=== PATIENT | male | born 1960 ===

== ENCOUNTER → 2022-01-13 07:48 | Outpatient (BNVA) | payer OTHER, MEDICARE, SELFPAY | PROVIDERS: PCP Internal Medicine; Visit Provider Nurse Practitioner Family | DX: Z13.89 Encounter for screening for other disorder (principal) ==

== ENCOUNTER → 2023-01-12 07:41 | Outpatient (BNVA) | payer OTHER, MEDICARE, SELFPAY | PROVIDERS: PCP Internal Medicine; Visit Provider Nurse Practitioner Family | DX: Z13.89 Encounter for screening for other disorder (principal) ==

== ENCOUNTER 2024-01-16 07:55 | Outpatient (AMB) | payer OTHER, MEDICARE, SELFPAY ==
--- NOTE | 2024-01-16 07:56 | MHC.OFFVIS ---
Vital Signs 01/16/24 07:58 Height 5 ft 4 in Weight 196 lb BMI 33.6 BP 132/82 Blood Pressure Location Rt brachial Position Sitting Pulse 86 Pulse Source Pulse Oximeter Pulse Oximetry (%) 95 Oxygen Delivery Method Room Air Intake Visit Reasons: 1yr follow up THERESA/ Confirmed w/ Inés Intake Note: Patient presents for 1 year follow up THERESA. Patient feels tired and sleepy all the time. Allergies codeine Allergy (Unknown, Verified 01/16/24 07:59) Itching Medication List - Last Reconciled 01/16/24 by JUAN Bar amlodipine 10 mg PO DAILY aspirin 81 mg PO DAILY atorvastatin 80 mg PO DAILY cholecalciferol (vitamin D3) 25 mcg PO DAILY coenzyme [id number] 100-100 mg-unit caps PO duloxetine 30 mg PO DAILY hydrochlorothiazide 25 mg PO DAILY isosorbide mononitrate ER 60 mg PO DAILY losartan 25 mg PO DAILY metformin 500 mg PO BID metformin 1,000 mg PO BID metoprolol succinate ER 25 mg PO DAILY oxybutynin chloride ER 10 mg PO DAILY [tumeric PO] zolpidem 5 mg PO BEDTIME PRN HPI Comments Details: 63-yr-old male presents for follow-up visit for THERESA. Pt reports he uses his CPAP most nights. He usually sleeps about 6 hrs w/ the CPAP, then removes the mask and sleeps another 2 hrs. Sleeps well w/ use, but wakes up tired. He often feels sleepy and tired. He takes some walks, but is not very active. Takes 1 black coffee in the am. Denies alcohol or marijuana use. He does move a lot at night, kicks his legs. His puts a pillow between them, as kicks and fights. He denies leg cramps. Sometimes rubs his legs together at night. He voids 3-4 x's per night. Has zolpidem- not using it nightly. The fighting in his sleep occurs on nights when he does not take the zolpidem. States he is still forgetful. He needs to read something a few times before he understands and recalls this. Compliance Report Usage 10/18/2023 - 01/15/2024 Usage days 88/90 days (98%) Usage >= 4 hours 86 days (96%) Average usage (days used) 6 hours 30 minutes AirSense 10 AutoSet Serial number [id number] Mode AutoSet Min Pressure 6 cmH2O Max Pressure 16 cmH2O, w/ Max pressure 13 cmH2O EPR Fulltime EPR level 3 Residual AHI: 1.6 PFSH Medical History (Updated 01/16/24 @ 08:45 by JUAN Bar) HTN (hypertension) HLD (hyperlipidemia) Depression Surgical History Hx of thyroidectomy Social History (Updated 01/12/23 @ 08:00 by Elham Ashton CMA) Alcohol intake: never Patient Tobacco Use Status: Never used Tobacco Review of Systems Const All systems reviewed & are unremarkable except as noted in HPI and below Physical Exam Vital Signs: Last Vital Signs Pulse 86 01/16/24 07:58 BP 132/82 01/16/24 07:58 Pulse Ox 95 01/16/24 07:58 Oxygen Delivery Method Room Air 01/16/24 07:58 BMI result Body Mass Index 33.6 Const General: no acute distress Orientation/consciousness: patient oriented x3 Resp Effort & Inspection: able to speak in complete sentences Neuro General: patient oriented x3 Psych Mental Status: mental status grossly normal Speech and movement: Clear speech present Attitude: cooperative Telehealth Telehealth Location of provider rendering services: practice address Location of patient: address on file Patient Identification confirmed using: Name, : Yes Telehealth method: voice only Patient verbally consented to treatment: Yes Patient verbally consented to billing insurance company: Yes Patient informed of any privacy concerns related to visit: Yes Results Reviewed Results Reviewed: PAP compliance report- see HPI Assessment & Plan Assessment & Plan (1) Obstructive sleep apnea: Code(s): G47.33 - Obstructive sleep apnea (adult) (pediatric) Category: Medical (2) Cognitive dysfunction: Comment: ? mild vascular cognitive impairment. Code(s): F09 - Unspecified mental disorder due to known physiological condition Category: Medical (3) Parasomnia: Code(s): G47.50 - Parasomnia, unspecified Category: Medical Plan Pt advised to undergo in-lab sleep study on CPAP to assess for REM sleep behaviors vs parasomnias. For THERESA: Continue APAP 6-16 cmH2O nightly > 4 hours, as pt is having good clinical effect. Clean machine and supplies daily. Change PAP supplies routinely. Pt to call us/respiratory home care company with any concerns. ? For cognition: Continue regular exercise, socialization, and cognitively stimulating activities. Continue ASA, statin and anti-HTN regimen for CV risk reduction f/u in 6 months or sooner. Orders: Orders RT PSG in-lab sleep study Today F09 - Unspecified mental disorder due to known physiological condition, G47.33 - Obstructive sleep apnea (adult) (pediatric), G47.50 - Parasomnia, unspecified Coding Level of Care Code Est Pt Level 4 (97795) Diagnoses Obstructive sleep apnea G47.33 Cognitive dysfunction F09 Parasomnia G47.50
[2024-01-16 07:58] VITALS: BP 132/82; PULSE 86; O2SAT 95; BMI 33.6
== END 2024-01-16 08:52 | disposition home or self-care (01) ==
PROVIDERS: Visit Provider Nurse Practitioner Family
DX: G47.33 Obstructive sleep apnea (adult) (pediatric) (principal); R41.89 Other symptoms and signs involving cognitive functions and awareness; G47.50 Parasomnia, unspecified
CPT/HCPCS: 99214

== ENCOUNTER → 2024-01-16 07:55 | Outpatient (BNVA) | payer OTHER, MEDICARE, SELFPAY | PROVIDERS: Visit Provider Nurse Practitioner Family ==

== ENCOUNTER → 2024-02-19 19:30 | Outpatient (BNV) | payer OTHER, MEDICARE, SELFPAY | PROVIDERS: Visit Provider Psychiatry & Neurology Neurology | DX: G47.33 Obstructive sleep apnea (adult) (pediatric) (principal) | CPT/HCPCS: 95810 ==

== ENCOUNTER → 2024-02-19 20:30 | Outpatient (REF) | payer OTHER, MEDICARE, SELFPAY | LOC: HO.SL 20:30 | PROVIDERS: Visit Provider Nurse Practitioner Family | DX: G47.33 Obstructive sleep apnea (adult) (pediatric) (principal); G47.50 Parasomnia, unspecified | CPT/HCPCS: 95810 ==

== ENCOUNTER → 2024-04-20 20:30 | Outpatient (REF) | payer OTHER, MEDICARE, SELFPAY | LOC: HO.SL 20:30 | PROVIDERS: Visit Provider Nurse Practitioner Family | DX: G47.33 Obstructive sleep apnea (adult) (pediatric) (principal); F09 Unspecified mental disorder due to known physiological condition; G47.50 Parasomnia, unspecified | CPT/HCPCS: 95811 ==

== ENCOUNTER → 2024-04-20 22:58 | Outpatient (BNV) | payer OTHER, MEDICARE, SELFPAY | PROVIDERS: Visit Provider Psychiatry & Neurology Neurology | DX: G47.33 Obstructive sleep apnea (adult) (pediatric) (principal) | CPT/HCPCS: 95811 ==

== ENCOUNTER 2024-07-25 15:21 | Outpatient (AMB) | payer OTHER, MEDICARE, SELFPAY ==
[2024-07-25 15:26] VITALS: BP 146/86; PULSE 80; O2SAT 95; BMI 34.2
--- NOTE | 2024-07-25 15:26 | A.OFFVIS_ITS ---
Vital Signs 07/25/24 15:26 Height 5 ft 4 in Weight 199 lb BMI 34.2 BP 146/86 H Blood Pressure Location Rt brachial Position Sitting Pulse 80 Pulse Source Pulse Oximeter Pulse Oximetry (%) 95 Oxygen Delivery Method Room Air Intake Visit Reasons: 6 month f/u Art Handler Required: Yes Art Handler Name: Kristine Montoya Information Interpreted: non-clinical & clinical Accompanied by: Self / Same As Patient Allergies codeine Allergy (Unknown, Verified 07/25/24 15:29) Itching HPI Comments Details: Carmelo is a 64 year old male, follows up today for his THERESA and parasomnia behaviors. 04/21/24, in-lab PAP titration study- study showed good control of pt's THERESA on CPAP 4-8, w/ best response at 8cmH2O. There was frequent PLMS 61/hr and PLMS arousal index 11/hr. He is sleeping 7 hours a night, gets up for the bathroom then goes back to sleep. Pt is using his CPAP regularly. He says he understands the importance of compliance due to his h/o T2DM and HTN. The PAP pressures are okay for him, he cleans the mask as needed. BP 146/86 today. Mood is anxious as he is dealing with problems at home. Sees a psychologist and pscyhiatrist. He continues to have frequent nocturnal restless leg movements. His puts pillows between his legs.. Since the last visit we started pt on low dose Clonazepam for REM sleep behaviors- he had jumped out of bed and almost hit his head on the bedside table, which have helped reduce the episodes of jumping out of bed and flailing/fighting while sleep. Walking continues to be very painful and he still walks for 15 min daily. He bikes at the gym for 30 min daily and is working with a pulmonology technician to change eating habits, and has information on the DASH Diet and the Mediterranean Diet. 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 [facility] Compliance Report Usage 06/26/2024 - 07/25/2024 Usage days 29/30 days (97%) Usage >= 4 hours 29 days (97%) Average usage (days used) 6 hours 21 minutes AirSense 10 AutoSet Serial number [id number] Mode AutoSet Min Pressure 6 cmH2O Max Pressure 16 cmH2O, w/ Max pressure 13.1 cmH2O EPR Fulltime EPR level 3 Residual AHI: 1.6 PFSH Medical History (Updated 07/25/24 @ 17:16 by Hedy Roque PA-C) HTN (hypertension) HLD (hyperlipidemia) Depression Surgical History Hx of thyroidectomy Social History Alcohol intake: never Patient Tobacco Use Status: Never used Tobacco Review of Systems Const Reports as per HPI Musc Reports numbness and Reports tingling Neuro Reports numbness, Reports restless legs and Reports tingling Psych Reports anxiety and Reports difficulty concentrating Physical Exam Vital Signs: Last Vital Signs Pulse 80 07/25/24 15:26 BP 146/86 H 07/25/24 15:26 Pulse Ox 95 07/25/24 15:26 Oxygen Delivery Method Room Air 07/25/24 15:26 BMI result Body Mass Index 34.2 Const General: cooperative, no acute distress and anxious Nutritional Appearance: overweight Orientation/consciousness: patient oriented x3 HEENT Face and sinus: Yes face symmetric Eyes Pupils: Equal, round and reactive pupils present, Pupils normal by confrontation and Pupil accommodation reflex normal Neck Neck: Yes full ROM and Yes supple Resp Effort & Inspection: normal respiratory effort and able to speak in complete sentences Neuro General: patient oriented x3 Cranial nerves: Yes CN's II-XII intact bilaterally, Yes Equal, round and reactive pupils present and Yes Midline tongue present Gait exam (Neuro): Normal gait present Deep tendon reflexes (DTR's): Right triceps reflex intensity grade: 2+, Left triceps reflex intensity grade: 2+, Rt Biceps (C5, C6): 2+, Left biceps reflex intensity grade: 2+, Right brachioradialis reflex intensity grade: 2+, Left brachioradialis reflex intensity grade: 2+, Right patellar reflex intensity grade: 2+, Left patellar reflex intensity grade: 2+, Right ankle reflex intensity grade: 2+ and Left ankle reflex intensity grade: 2+ Coordination: [id number] test normal Romberg Test: Negative Assessment & Plan Assessment & Plan (1) Parasomnia: Code(s): G47.50 - Parasomnia, unspecified Category: Medical Qualifiers: Parasomnia type: REM sleep behavior disorder Qualified Code(s): G47.52 - REM sleep behavior disorder Plan: * Will follow up in two months after labs are completed. (2) Cognitive dysfunction: Comment: ? mild vascular cognitive impairment. Code(s): F09 - Unspecified mental disorder due to known physiological condition Category: Medical Plan: Complete TSH/ B12/ with Folate and ESR/CRP/ CBC/CMP/ Viral etiology or deficiency of vitamins. (3) Obstructive sleep apnea: Code(s): G47.33 - Obstructive sleep apnea (adult) (pediatric) Category: Medical (4) White matter disease: Comment: On MRI likely due to his vascular risk factors Code(s): R90.82 - White matter disease, unspecified Category: Medical Plan ? For THERESA: In-lab PAP titration study showed good response to CPAP 8 cmH2O, however pt is tolerating current settings well, thus will continue APAP 6-16 cmH2O nightly > 4 hours for now. Clean machine and supplies daily. Change PAP supplies routinely. For REM sleep behaviors: Continue Clonazepam 0.5-1mg qhs. For PLMS and restlessness: Check labs for common etiologies. Continue Gabapentin 100-200mg qhs. May try OTC Voltran, Restless Leg creams, ointments or tiger balm. ? For cognition: Continue regular exercise, socialization, and cognitively stimulating activities. Continue ASA, statin and anti-HTN regimen for CV risk reduction ? f/u in 6 months or sooner. Orders: Orders Homocysteine 07/26/24 G47.50 - Parasomnia, unspecified, I10 - Essential (primary) hypertension, E78.5 - Hyperlipidemia, unspecified Vitamin B12 and Folate 07/26/24 G47.50 - Parasomnia, unspecified, I10 - Essential (primary) hypertension, E78.5 - Hyperlipidemia, unspecified RPR Monitor reflex titer 07/26/24 G47.50 - Parasomnia, unspecified, I10 - Essential (primary) hypertension, E78.5 - Hyperlipidemia, unspecified HIV Ab/Ag 07/26/24 G47.50 - Parasomnia, unspecified, I10 - Essential (primary) hypertension, E78.5 - Hyperlipidemia, unspecified CRP High Sensitivity 07/26/24 G47.50 - Parasomnia, unspecified, I10 - Essential (primary) hypertension, E78.5 - Hyperlipidemia, unspecified Complete Blood Count no Diff 07/26/24 G47.50 - Parasomnia, unspecified, I10 - Essential (primary) hypertension, E78.5 - Hyperlipidemia, unspecified Comprehensive Met. Panel 07/26/24 G47.50 - Parasomnia, unspecified, I10 - Essential (primary) hypertension, E78.5 - Hyperlipidemia, unspecified Methylmalonic Acid 07/26/24 G47.50 - Parasomnia, unspecified, I10 - Essential (primary) hypertension, E78.5 - Hyperlipidemia, unspecified TSH reflex Free T4 07/26/24 G47.50 - Parasomnia, unspecified, I10 - Essential (primary) hypertension, E78.5 - Hyperlipidemia, unspecified Lyme IgG/IgM w/reflex to WB 07/26/24 G47.50 - Parasomnia, unspecified, I10 - Essential (primary) hypertension, E78.5 - Hyperlipidemia, unspecified Ferritin 07/26/24 G47.50 - Parasomnia, unspecified, I10 - Essential (primary) hypertension, E78.5 - Hyperlipidemia, unspecified Erythrocyte Sedimentation Rate 07/26/24 G47.50 - Parasomnia, unspecified, I10 - Essential (primary) hypertension, E78.5 - Hyperlipidemia, unspecified IRON PROFILE 07/26/24 G47.50 - Parasomnia, unspecified, I10 - Essential (primary) hypertension, E78.5 - Hyperlipidemia, unspecified Medications: New gabapentin Take one capsule at bedtime, may take one extra capsule for pain. 100 mg PO BEDTIME 60 caps 2RF G47.50 - Parasomnia, unspecified Coding Level of Care Code Est Pt Level 4 (33953) Complex EM visit Add On G2211 Diagnoses REM sleep behavior disorder G47.52 Parasomnia type: REM sleep behavior disorder Cognitive dysfunction F09 Obstructive sleep apnea G47.33 White matter disease R90.82
== END 2024-07-26 08:02 | disposition home or self-care (01) ==
LOC: HO.HSMS 15:22
PROVIDERS: PCP Internal Medicine; Visit Provider Nurse Practitioner Family
DX: G47.52 REM sleep behavior disorder (principal); R41.89 Other symptoms and signs involving cognitive functions and awareness; G47.33 Obstructive sleep apnea (adult) (pediatric); R90.82 White matter disease, unspecified
CPT/HCPCS: 99214

== ENCOUNTER 2024-07-26 10:35 | Outpatient (REF) | payer OTHER, MEDICARE, SELFPAY ==
[2024-07-26 11:36] LABS: Hematocrit 40.6 % (42.0-52.0); Hemoglobin 14.1 g/dl (14.0-18.0); Mean Corpuscular HGB Conc 34.7 g/dl (31.0-36.0); Mean Corpuscular Hemoglobin 30.2 pg (27.0-33.0); Mean Corpuscular Volume 86.9 fL (80.0-98.0); Mean Platelet Volume 11.5 fL (9.4-12.4); Platelet Count 203 X10*3/uL (160-400); Red Blood Count 4.67 X10*6/uL (4.60-5.80); White Blood Count 4.8 X10*3/uL (4.8-10.8)
[2024-07-26 11:52] LABS: Alanine Aminotransferase 31 U/L (0-40); Albumin Level 4.4 g/dL (3.5-5.0); Alkaline Phosphatase 59 U/L (39-117); Anion Gap 13 (12-20); Aspartate Amino Transferase 19 U/L (5-37); Blood Urea Nitrogen 17 mg/dL (9-16); Calcium 9.2 mg/dL (8.4-10.2); Carbon Dioxide 27 mmol/L (22-29); Chloride 106 mmol/L (96-108); Estimated Glomerular Filt Rate 59; Glucose Random 111 mg/dL (60-115); Iron 105 mcg/dL (45-160); Percent Iron Saturation 40 % (15-50); Potassium 3.8 mmol/L (3.3-5.1); Sodium 142 mmol/L (135-145); Total Iron Binding Capacity 265 mcg/dL (228-428); Total Protein 7.2 g/dL (6.5-8.0); Unsaturated Iron Binding 160 ug/dL
[2024-07-26 12:06] LABS: Erythrocyte Sedimentation Rate 11 MM/HR (0-15)
[2024-07-26 12:11] LABS: Ferritin 61 ng/mL (20-250); TSH reflex Free T4 1.17 uIU/mL (0.32-4.0)
[2024-07-26 12:15] LABS: HIV AB/AG Nonreactive (Nonreactive); HIV Num 1 0.08 S/CO (0.00-0.99)
[2024-07-26 12:23] LABS: Folate 8.2 ng/mL (> or = 4.0); Vitamin B12 684 pg/mL (200-900)
[2024-07-27 08:02] LABS: CRP High Sensitivity 0.6 mg/L
[2024-07-27 08:33] LABS: Lyme Abs Screen <0.90 index
[2024-07-27 11:03] LABS: RPR Rapid Plasma Reagin NON-REACTIVE (NON-REACTIVE)
[2024-07-27 18:13] LABS: Homocysteine 15.2 umol/L (<11.4)
[2024-07-29 10:44] LABS: Methylmalonic Acid 179 nmol/L (69-390)
== END 2024-07-26 10:36 | disposition home or self-care (01) ==
LOC: HO.LAB 10:35
PROVIDERS: PCP Internal Medicine; Visit Provider Physician Assistant Medical
DX: G47.50 Parasomnia, unspecified (principal); I10 Essential (primary) hypertension; E78.5 Hyperlipidemia, unspecified
CPT/HCPCS: 36415; 80053; 82607; 82728; 82746; 83090; 83540; 83921; 84443; 85027; 85652; 86141; 86592; 86617; 86618; 87389

== ENCOUNTER 2024-09-24 14:48 | Outpatient (AMB) | payer OTHER, MEDICARE, SELFPAY ==
[2024-09-24 14:49] VITALS: BP 144/82; PULSE 85; O2SAT 96; BMI 33.9
--- NOTE | 2024-09-24 14:49 | A.OFFVIS_ITS ---
Vital Signs 09/24/24 14:49 Height 5 ft 4 in Weight 197 lb 8 oz BMI 33.9 BP 144/82 H Blood Pressure Location Lt brachial Position Sitting Pulse 85 Pulse Source Pulse Oximeter Pulse Oximetry (%) 96 Oxygen Delivery Method Room Air Intake Visit Reasons: Follow up Allergies codeine Allergy (Unknown, Verified 09/24/24 14:52) Itching Medication List - Last Reconciled 09/24/24 by Hedy Roque PA-C aspirin 81 mg PO DAILY atorvastatin 80 mg PO DAILY carvedilol 6.25 mg PO BID cholecalciferol (vitamin D3) 25 mcg PO DAILY clonazepam 0.25 - 0.5 mg (0.5 - 1 x 0.5 mg) PO BEDTIME 30 days coenzyme Q10 (Co Q-10) 300 mg PO DAILY fluoxetine 40 mg PO DAILY gabapentin 200 mg (2 x 100 mg) PO BEDTIME isosorbide mononitrate ER 60 mg PO DAILY losartan 25 mg PO DAILY magnesium 250 mg PO DAILY mecobalamin (vitamin B12) 1,000 mcg PO DAILY metformin 1,000 mg PO BID nitroglycerin mg sublingual thiamine HCl (vitamin B1) 100 mg PO DAILY HPI Comments Details: Carmelo is a 64 year old male, follows up today for his THERESA and parasomnia behaviors. helps with interpretation. He is using his CPAP regularly and sleeping about 6 hours a night. He understands the importance of compliance due to his h/o T2DM and HTN. BP 146/86 today. Mood is anxious, he has RLS. Sees a psychologist and pscyhiatrist both on a continuous basis. He continues to have frequent nocturnal restless leg movements. His puts pillows between his legs. Since the last visit we started pt on low dose Clonazepam for REM sleep behaviors. This has helped to reduce the episodes of jumping out of bed, flailing and fighting while asleep. He has been walking for 45 min on the treadmill, continues to have pain in feet, discussed increasing his Gabapentin to 200mg PO at bedtime. 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 Reviewed labs/ MRI and THERESA Compliance with . [facility] Medical History HTN (hypertension) HLD (hyperlipidemia) Depression Surgical History Hx of thyroidectomy Social History Alcohol intake: never Patient Tobacco Use Status: Never used Tobacco Physical Exam Vital Signs: Last Vital Signs Pulse 85 09/24/24 14:49 BP 144/82 H 09/24/24 14:49 Pulse Ox 96 09/24/24 14:49 Oxygen Delivery Method Room Air 09/24/24 14:49 BMI result Body Mass Index 33.9 Const General: cooperative and no acute distress Nutritional Appearance: obese (BMI ) Orientation/consciousness: patient oriented x3 HEENT Face and sinus: Yes face symmetric Eyes Pupils: Equal, round and reactive pupils present Neuro General: patient oriented x3 and moves all extremities Cranial nerves: Yes CN's II-XII intact bilaterally, Yes Facial sensation intact/muscles of mastication intact, Yes Equal, round and reactive pupils present, Yes Normal accommodation reflex present, Yes Bilaterally intact EOM present, Yes Nystagmus not present, Yes Normal facial strength present, Yes Midline tongue present, Yes Ability to bilaterally rotate head present and Yes Ability to bilaterally elevate shoulders present Gait exam (Neuro): Normal gait present Motor exam (neuro): 5/5 motor strength present throughout and Normal motor muscle tone present throughout Deep tendon reflexes (DTR's): Right triceps reflex intensity grade: 2+, Left triceps reflex intensity grade: 2+, Rt Biceps (C5, C6): 2+, Left biceps reflex intensity grade: 2+, Right brachioradialis reflex intensity grade: 2+, Left brachioradialis reflex intensity grade: 2+, Right patellar reflex intensity grade: 2+ and Left patellar reflex intensity grade: 2+ Psych Appearance: well kempt Speech and movement: Restless speech present Affect: Anxious affect present Thought process: Other thought process findings present (doesn't speak at all when asked questions, smiles d/t Language barrier?) Results Reviewed Results Reviewed: Neurocognitive Evaluation [facility] 2019 Labs: Reviewed THERESA Compliance 06/2024- 09/2024 >4 hours 74 days Total 5 hours and 3 min / Pressures [id number] / [place] 1.6- 15.7/ AHI 1.4 Assessment & Plan Assessment & Plan (1) Parasomnia: Code(s): G47.50 - Parasomnia, unspecified Category: Medical Qualifiers: Parasomnia type: REM sleep behavior disorder Qualified Code(s): G47.52 - REM sleep behavior disorder Plan: * Will follow up in two months after labs are completed. (2) Cognitive dysfunction: Comment: ? mild vascular cognitive impairment. Code(s): F09 - Unspecified mental disorder due to known physiological condition Category: Medical Plan: Complete TSH/ B12/ with Folate and ESR/CRP/ CBC/CMP/ Viral etiology or deficiency of vitamins. (3) Obstructive sleep apnea: Code(s): G47.33 - Obstructive sleep apnea (adult) (pediatric) Category: Medical (4) White matter disease: Comment: On MRI likely due to his vascular risk factors Code(s): R90.82 - White matter disease, unspecified Category: Medical (5) Bilateral foot pain: Code(s): M79.671 - Pain in right foot; M79.672 - Pain in left foot Category: Medical Plan ? For THERESA: In-lab PAP titration study showed good response to CPAP, thus will continue APAP 6-16 cmH2O. Clean machine and supplies daily as needed. For REM sleep behaviors: Continue Clonazepam 0.5-1mg qhs. For PLMS and restlessness: Increased Gabapentin to 200mg qhs. May try OTC Voltran, Restless Leg creams, ointments or tiger balm. PT - [facility] Cognitive Decline: Continue regular exercise, socialization, and cognitively stimulating activities. Continue ASA, statin and anti-HTN regimen for CV risk reduction, #1 modifiable RF for CV events is BP control, monitor BP. F/U in 6 months. Orders: Orders PT Evaluation and Treatment Today M79.671 - Pain in right foot, M79.672 - Pain in left foot Medications: New thiamine HCl (vitamin B1) 100 mg PO DAILY 30 tabs 3RF RLS F09 - Unspecified mental disorder due to known physiological condition Changed From gabapentin Take one capsule at bedtime, may take one extra capsule for pain. 100 mg PO BEDTIME 60 caps 2RF G47.50 - Parasomnia, unspecified To gabapentin 200 mg (2 x 100 mg) PO BEDTIME 60 caps 2RF sleep disorder G47.50 - Parasomnia, unspecified Coding Level of Care Code Est Pt Level 4 (19390) Diagnoses REM sleep behavior disorder G47.52 Parasomnia type: REM sleep behavior disorder Cognitive dysfunction F09 Obstructive sleep apnea G47.33 White matter disease R90.82 Bilateral foot pain M79.671; M79.672 Time Spent (min) 30 Comment Improving
== END 2024-09-24 16:01 | disposition home or self-care (01) ==
PROVIDERS: Absent Provider Physician Assistant Medical; PCP Internal Medicine; Visit Provider Physician Assistant Medical
DX: G47.52 REM sleep behavior disorder (principal); R41.89 Other symptoms and signs involving cognitive functions and awareness; G47.33 Obstructive sleep apnea (adult) (pediatric); R90.82 White matter disease, unspecified; M79.671 Pain in right foot; M79.672 Pain in left foot
CPT/HCPCS: 99214

== ENCOUNTER → 2024-09-24 14:48 | Outpatient (BNVA) | payer OTHER, MEDICARE, SELFPAY | PROVIDERS: Absent Provider Physician Assistant Medical; PCP Internal Medicine; Visit Provider Physician Assistant Medical ==

== ENCOUNTER 2025-03-27 15:24 | Outpatient (AMB) | payer OTHER, MEDICARE, SELFPAY ==
[2025-03-27 15:28] VITALS: BP 118/80; PULSE 88; O2SAT 96; BMI 33.8
--- NOTE | 2025-03-27 15:28 | A.OFFVIS_ITS ---
Vital Signs 03/27/25 15:28 Height 5 ft 4 in Weight 197 lb BMI 33.8 BP 118/80 Blood Pressure Location Lt brachial Position Sitting Pulse 88 Pulse Source Pulse Oximeter Pulse Oximetry (%) 96 Oxygen Delivery Method Room Air Intake Visit Reasons: Follow Up Intake Note: Patient presents follow up Sleep medication. 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 He uses his CPAP regularly and sleeps about 6 hours a night, however this week he was in [place] and didn't take it with him. BP is 118/80. T2DM is also now better managed on Metformin 1000mg PO BID, he says. His mood is anxious, and he has RLS. He sees a psychologist and pscyhiatrist both on a continuous basis, therapist usually every 2 weeks as he has depression, and takes fluoxetine. He continues to have frequent nocturnal restless leg movements. His puts pillows between his legs, she worries he may fall from the bed and puts padded pillows on the floors, she has removed all tables away from his side of the bed. He also takes gabapentin 300mg po daily at bedtime along with a low dose of Clonazepam for REM sleep behaviors. This has helped to reduce the episodes of jumping out of bed, flailing and fighting in his sleep. He is going to the gym now 5 days of week and trying to live a more healthier lifestyle, he has increased his water intake also. He walks for 45 min on the treadmill and says he has pain in his feet bilaterally with a burning sensation and then he stops walking. 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 [facility] Medical History HTN (hypertension) HLD (hyperlipidemia) Depression Surgical History Hx of thyroidectomy Social History Alcohol intake: never Patient Tobacco Use Status: Never used Tobacco Physical Exam Vital Signs: Last Vital Signs Pulse 88 03/27/25 15:28 BP 118/80 03/27/25 15:28 Pulse Ox 96 03/27/25 15:28 Oxygen Delivery Method Room Air 03/27/25 15:28 BMI result Body Mass Index 33.8 Const General: cooperative and no acute distress Nutritional Appearance: obese (BMI ) Orientation/consciousness: patient oriented x3 HEENT Face and sinus: Yes face symmetric Eyes Pupils: Equal, round and reactive pupils present Neuro Other: anxious, nervousness General: patient oriented x3 and moves all extremities Cranial nerves: Yes CN's II-XII intact bilaterally, Yes Facial sensation intact/muscles of mastication intact, Yes Equal, round and reactive pupils present, Yes Normal accommodation reflex present, Yes Bilaterally intact EOM present, Yes Nystagmus not present, Yes Normal facial strength present, Yes Midline tongue present, Yes Ability to bilaterally rotate head present and Yes Ability to bilaterally elevate shoulders present Gait exam (Neuro): Normal gait present Motor exam (neuro): 5/5 motor strength present throughout and Normal motor muscle tone present throughout Deep tendon reflexes (DTR's): Right triceps reflex intensity grade: 2+, Left triceps reflex intensity grade: 2+, Rt Biceps (C5, C6): 2+, Left biceps reflex intensity grade: 2+, Right brachioradialis reflex intensity grade: 2+, Left brachioradialis reflex intensity grade: 2+, Right patellar reflex intensity grade: 2+ and Left patellar reflex intensity grade: 2+ Psych Appearance: well kempt Speech and movement: Restless speech present and Other speech and movement exam findings present (Psych) (moves / shakes his feet constantly) Affect: Anxious affect present Thought process: Other thought process findings present (doesn't speak at all when asked questions, smiles d/t Language barrier?) Results Reviewed Results Reviewed: THERESA compliance Report December 2024 to March 2025 Total use is (80/90days, >-4hrs- 89%, Average usage- 5hrs 56min, Median pressure 8.9, Med Leaks- 0.9, AHI-1.4 Assessment & Plan Assessment & Plan (1) Parasomnia: Comment: Continue on Gabapentin increased today will evaluate at next visit Code(s): G47.50 - Parasomnia, unspecified Category: Medical Qualifiers: Parasomnia type: REM sleep behavior disorder Qualified Code(s): G47.52 - REM sleep behavior disorder Plan: * Will follow up in two months after labs are completed. (2) Cognitive dysfunction: Comment: ? mild vascular cognitive impairment. Code(s): F09 - Unspecified mental disorder due to known physiological condition Category: Medical Plan: Complete TSH/ B12/ with Folate and ESR/CRP/ CBC/CMP/ Viral etiology or deficiency of vitamins. (3) Obstructive sleep apnea: Code(s): G47.33 - Obstructive sleep apnea (adult) (pediatric) Category: Medical (4) White matter disease: Comment: On MRI likely due to his vascular risk factors Code(s): R90.82 - White matter disease, unspecified Category: Medical (5) Bilateral foot pain: Comment: RLS/ PLMD Code(s): M79.671 - Pain in right foot; M79.672 - Pain in left foot Category: Medical Plan ? For THERESA: In-lab PAP titration study showed good response to CPAP, thus will continue APAP 6-16 cmH2O. Clean machine and supplies daily as needed, change filters, fill reservoir with water as needed. For REM sleep behaviors: Continue Clonazepam 0.5-1mg qhs. For PLMS and restlessness: Increased Gabapentin from 200mg to 300mg po at bedtime. May try magnalife, OTC Voltran, Restless Leg creams, ointments or tiger balm. Recommend PT with [facility] however patient declined today. Cognitive Decline: Continue regular exercise, socialization, and cognitively stimulating activities. Continue ASA, statin and anti-HTN regimen for CV risk reduction, #1 modifiable RF for CV events is BP control, monitor BP. F/U in 6 months. Medications: Changed From gabapentin 200 mg (2 x 100 mg) PO BEDTIME 60 caps 2RF sleep disorder G47.50 - Parasomnia, unspecified To gabapentin take 3 - 100mg capsules daily at bedtime. 300 mg (3 x 100 mg) PO BEDTIME 270 caps 2RF REM sleep disorder 3 months MDD 300mg G47.50 - Parasomnia, unspecified Patient Instructions: Sleep Hygiene provided: set a scheduled bedtime and wake time to help regulate the circadian rhythm and balance the release of pituitary hormones. Sleep in a dark room, temperatures below 68 degrees, and no devices n bed. Limit caffeinated products 6 hours prior to bed, and limit fluids 2-4 hours prior to bed. Gentle night yoga, diffusing essential oils, and playing soft music can be relaxing. Coding Level of Care Code Est Pt Level 4 (30186) Complex EM visit Add On G2211 Diagnoses REM sleep behavior disorder G47.52 Parasomnia type: REM sleep behavior disorder Cognitive dysfunction F09 Obstructive sleep apnea G47.33 White matter disease R90.82 Bilateral foot pain M79.671; M79.672 Time Spent (min) 35 Comment Parasomnias? Cognitive Decline PSG at next visit
--- OUTSIDE RECORDS SUMMARY | 2025-03-27 15:33 | XMS_ITS | Clinical Summary ---
Author Organization [facility] en[employer] [facility] Address [address] [place] [place] [address] Phone Care Team Providers Care Mental Health Specialist Name Role Phone Yasmani Sanders DO Primary Care Provider Allergies Active Allergy Reactions Criticality Noted Date Comments Codeine 10/17/2014 No reaction documented. Lisinopril 01/15/2025 Medications cholecalciferol (VITAMIN D-3) 25 mcg (1,000 unit) tablet Take 1 tablet (1,000 Units total) by mouth 1 (one) time each day. Active magnesium 250 mg tablet Take 1 Tablet by mouth daily. Active coenzyme Q-10 300 mg capsule capsule Take 1 capsule (300 mg total) by mouth 1 (one) time each day. Active turmeric root extract 500 mg capsule Take 1 capsule by mouth 1 (one) time each day. Active nitroglycerin (NITROSTAT) 0.[address] 1 Tablet under the tongue every 5 minutes as needed for Chest pain. Up to 3 doses; call 911 if chest pain persists 2 Active isosorbide mononitrate (IMDUR) 60 mg 24 hr tablet Take 60 mg by mouth daily. Active aspirin 81 mg chewable tablet Chew 1 tablet (81 mg total) 1 (one) time each day. 0 Active atorvastatin (LIPITOR) 80 mg tablet Take 1 Tab by mouth at bedtime. 9 Active cyanocobalamin (Vitamin B-12) 1,000 mcg tablet Take 1 tablet (1,000 mcg total) by mouth 1 (one) time each day. Active metFORMIN (FORTAMET) 1,000 mg 24 hr tablet Take 1 tablet (1,000 mg total) by mouth 2 (two) times a day. Do not crush, chew, or split. Active FLUoxetine (PROzac) 40 mg capsule Take 1 capsule (40 mg total) by mouth at bedtime. Active clonazePAM (KlonoPIN) 0.5 mg tablet Take 1 tablet (0.5 mg total) by mouth at bedtime. Active calcium carb/vitamin D3/vit K1 (CITRACAL-D3 SOFT CHEW ORAL) Take 1 tablet by mouth 1 (one) time each day. Active losartan (Cozaar) 50 mg tabletIndications :Coronary artery disease, unspecified vessel or lesion type, unspecified whether angina present, unspecified whether [place] or transplanted heart Take 1 tablet (50 mg total) by mouth 1 (one) time each day. 90 tablet 4 5 04/10/20 26 Active carvediloL (COREG) 6.25 mg tablet TAKE 1 TABLET BY MOUTH TWICE A DAY WITH MEALS 180 tablet 1 5 Active Active Problems Problem Noted Date Diagnosed Date Ascending aorta dilatation ([facility] V24) 022 Assessment & Plan (08/23/2024 8:23 AM EST): Patient's ascending aorta measures 4.0 cm. This is unchanged from previous echocardiogram from 2020. We will update an echocardiogram prior to next office visit. Orders: Transthoracic echocardiogram (TTE) complete with PRN contrast, bubble, strain, and 3D order panel; Future DM2 (diabetes mellitus, type 2) (CMS/HCC V24, CM S/HCC V28) 12/07/2021 LVH (left ventricular hypertrophy) 12/07/2021 HFrEF (heart failure with re duced ejection fraction) (CMS/HCC V24, CMS/HCC V28) 02/13/2021 Overview (08/23/2024): L Assessment & Plan (08/23/2024 8:23 AM EST): Patient has history of HFrEF-EF 40 to 45% with NYHA class II-III symptoms. He is euvolemic on physical examination. Patient denies any chest pain or dyspnea. At his last office visit we did try getting him on Entresto but cost prohibitive. Will increase losartan to 50mg today. He does not present with any clinical symptoms of heart failure and appears euvolemic on examination. He will continue with coreg as prescribed. Patient advised to seek emergency medical attention by calling 911 if they were to develop severe dyspnea, chest pain that did not resolve with rest or nitroglycerin, or if they were to faint. I've asked the patient to call if they develop worsening symptoms of heart failure such as increased shortness of breath, new or worsening cough, increased swelling in the legs or ankles, or weight gain of more than 2 pounds in one day or 4 pounds in one week. Orders: Basic metabolic panel; Future Basic metabolic panel Transthoracic echocardiogram (TTE) complete with PRN contrast, bubble, strain, and 3D order panel; Future Dysphagia 09/19/2018 Overview (07/06/2024): DR. DEMAR RAMIREZ (coronary artery disease) 07/01/2017 Overview (08/23/2024): 2015 old [place] w/ single stent Assessment & Plan (01/15/2025 3:43 PM EDT): Patient is had a decrease in his diverticular ejection fraction. Possibly secondary to poorly controlled blood pressure. We have increased the dose of his afterload reduction in effort to try to get better ejection fraction. If you are unable to improve the ejection fraction he may need to be considered for an ICD. Patient states he still cannot afford the Entresto. Orders: ECG 12 lead losartan (Cozaar) 50 mg tablet; Take 1 tablet (50 mg total) by mouth 1 (one) time each day. Assessment & Plan (08/23/2024 8:23 AM EST): Patient has history of coronary artery disease Status post RCA stenting in 2014. He denies any exertional chest pain or dyspnea however he is reporting fatigue symptoms. He continues on cardioprotective medical therapy with aspirin, beta-wilberto and statin. I have reviewed with the patient the importance of a heart healthy lifestyle which includes eating a low-fat low-salt diet, getting regular exercise, maintaining a healthy weight, not smoking, and following up with routine medical care. Orders: Transthoracic echocardiogram (TTE) complete with PRN contrast, bubble, strain, and 3D order panel; Future THERESA on CPAP 07/01/2017 Anxiety 06/27/2017 Benign prostatic hyperplasia with urinary obstru ction 02/22/2017 Hyperlipidemia 02/22/2017 Assessment & Plan (08/23/2024 8:23 AM EST): Patient's last LDL cholesterol 23. This is at goal. Continue with statin as prescribed. Hypertension 02/22/2017 Assessment & Plan (08/23/2024 8:23 AM EST): BP elevated today, however he did not take medications today, I will increase losartan 50mg daily and repeat basic metabolic panel in 1 week. Intermittent second degree atrioventricular bloc k 06/04/2016 Vitamin D deficiency 04/17/2015 Resolved Problems Problem Noted Date Diagnosed Date Resolved Date Depression 05/26/2018 08/23/2024 Insomnia 02/22/2017 08/23/2024 Memory loss 06/25/2015 08/23/2024 Headache 12/26/2014 08/23/2024 Encounters Date Type Department Care Team Description 01/15/2025 1:00 PM EDT Office Visit [facility] [address] [place] [address] Guillaume Youngblood MD Coronary artery disease, unspecified vessel or lesion type, unspecified whether angina present, unspecified whether [place] or transplanted heart (Primary Dx) from Last 3 Months Surgical History Surgery Date Site/Laterality Comments ANGIOPLASTY PROCEDURE: HISTORICAL ANGIOPLASTY W/STENT Medical History Medical History Date Comments THERESA on CPAP 07/01/2017 DX:THERESA on CPAP Depression 05/26/2018 DX:Depression Anxiety 06/27/2017 DX:Anxiety Benign prostatic hyperplasia with urinary obstruction 02/22/2017 DX:Benign prostatic hyperpla hina with urinary obstruction Headache 12/26/2014 DX:Headache Hyperlipidemia 02/22/2017 DX:Hyperlipidemi a Hypertension 02/22/2017 DX:Hypertension Insomnia 02/22/2017 DX:Insomnia Intermittent second degree atrioventricular block 06/04/2016 DX:Intermittent second degre e atrioventricular block Memory loss 06/25/2015 DX:Memory loss Vitamin D deficiency 04/17/2015 DX:Vitamin D deficiency CAD (coronary artery disease) 07/01/2017 DX :CAD (coronary artery disease); COMMENT: 2015 old [place] w/ single stent IGT (impaired glucose tolerance) DX:IGT (impaired glucose tolerance) Dysphagia 2018 DX:Dysphagia; CO MMENT: DR. BENZ Overactive bladder DX:Overactive bladder DM2 (diabetes mellitus, type 2) ([facility] V24, CMS/[facility] V28) DX:DM2 (diabetes mellitus, type 2) ([facility]) Hyperparathyroidism ([facility] V24) DX:Hyperparathyroidism (HCC) Chronic abdominal pain DX:Chroni c abdominal pain Acute pain of right shoulder DX: Acute pain of right shoulder Family History Medical History Relation Name Comments Coronary artery disease Father Diabetes Father Heart attack Father Hyperlipidemia Father Hypertension Father CABG Mother Coronary artery disease Mother Heart attack Mother Hyperlipidemia Mother Hypertension Mother Relation Name Status Comments Father Mother Other 8 brothers Other 1 brother was 3 5 y/o and had open heart surgery Social History Tobacco Use Types Packs/Day Years Used Date Smoking Tobacco: Never Smokeless Tobacco: Never Tobacco Cessation:Counseling Given: Not Answered Alcohol Use Standard Drinks/Week Comments No 0 (1 standard drink = 0.6 oz pur e alcohol) Sex and Gender Information Value Date Recorded Sex Assigned at Not on file Legal Sex Male 7:02 AM EST Gender Identity Not on file Sexual Orientation Not on file Obstetrics History Last Filed Vital Signs Vital Sign Reading Time Taken Comments Blood Pressure 142/70 01/15/2025 12:56 PM EDT Pulse 80 01/15/2025 12:56 PM EDT Temperature - - Respiratory Rate - - Oxygen Saturation 96% 01/15/2025 12:56 PM EDT Inhaled Oxygen Concentration - - Weight 89.8 kg (198 lb) 01/15/2025 12:56 PM EDT Height 162.6 cm (5' 4 ) 01/15/2025 12:56 PM EDT Body Mass Index 33.99 01/15/2025 12:56 PM EDT Plan of Treatment Health Maintenance Due Date Last Done Comments Diabetes: Annual Foot Exam 02/01/1972 Diabetes: Annual Retina Eye Exam 02/01/1972 Pneumococcal Vaccine: 50+ Years (1 of 2 - PCV) 1981 Pneumococcal Vaccine: Pediatrics (0 to 5 Years) and At-Risk Patients (6 to 49 Years) (1 of 2 - PCV) 1981 Zoster Vaccines (2 of 2) 10/01/2019 08/06/2019 DTaP,Tdap,and Td Vaccines (2 - Td or Tdap) 10/30/2019 10/30/2009 RSV Immunization Adult Patients (1 - Risk 60-74 years 1-dose series) 2022 Colorectal Cancer Screening: Colonoscopy 08/22/2022 Depression Screening 08/22/2022 HIV Screening 08/22/2022 Hepatitis C Screening 08/22/2022 Medicare Annual Wellness Visit 08/22/2022 Social Influencers of Health Screening 08/22/2022 Influenza Vaccine (#1) 2025 , 07/19/2023, 06/09/2021, Additional history exists Diabetes: Blood Sugar Control Test (HGBA1C) 07/24/2025 01/21/2025, 07/26/2024 Diabetes: Annual Urine Albumin-Creatinine Ratio (uACR) 07/26/2025 07/26/2024 Diabetes: Annual GFR (Glomerular Filtration Rate) 01/21/2026 01/21/2025, 09/06/2024, 07/26/2024, Additional history exists Hypertension/CHF/CAD Annual BMP Blood Test 01/21/2026 01/21/2025, 09/06/2024, 07/26/2024, Additional history exists Cholesterol Screening (Lipid Panel) 01/21/2030 01/21/2025, 07/26/2024, 08/21/2018 COVID-19 Vaccine Completed 06/22/2024, , 12/01/2022, Additional history exists HIB Vaccines Aged Out No longer eligi ble based on patient's age to complete this topic HPV Vaccines Aged Out No longer eligi ble based on patient's age to complete this topic Hepatitis A Vaccines Aged Out No long er eligible based on patient's age to complete this topic Hepatitis B Vaccines Aged Out No long er eligible based on patient's age to complete this topic IPV Vaccines Aged Out No longer eligi ble based on patient's age to complete this topic MMR Vaccines Aged Out No longer eligi ble based on patient's age to complete this topic Meningococcal ACWY Vaccine Aged Out N o longer eligible based on patient's age to complete this topic Meningococcal B Vaccine Aged Out No l onger eligible based on patient's age to complete this topic RSV Immunization Patients Under 20 months Aged Out No longer eligible based on patient's age to complete this topic Varicella Vaccines Aged Out No longer eligible based on patient's age to complete this topic Procedures Procedure Name Priority Date/Time Associated Diagnosis Comments CBC WITH AUTO DIFFERENTIAL Routine 01/21/2025 8:56 AM EDT Laboratory tests ordered as part of a complete physical exam (CPE) CAD (coronary artery disease) HTN (hypertension) HLD (hyperlipidemia) BPH (benign prostatic hyperplasia) THERESA (obstructive sleep apnea) HEMOGLOBIN A1C Routine 01/21/2025 8:56 AM EDT Laboratory tests ordered as part of a complete physical exam (CPE) CAD (coronary artery disease) HTN (hypertension) HLD (hyperlipidemia) BPH (benign prostatic hyperplasia) THERESA (obstructive sleep apnea) Abnormal finding of blood chemistry, unspecified CBC AND DIFFERENTIAL Routine 01/21/2025 8:56 AM EDT Laboratory tests ordered as part of a complete physical exam (CPE) CAD (coronary artery disease) HTN (hypertension) HLD (hyperlipidemia) BPH (benign prostatic hyperplasia) THERESA (obstructive sleep apnea) THYROID STIMULATING HORMONE Routine 01/21/2025 8:56 AM EDT Laboratory tests ordered as part of a complete physical exam (CPE) CAD (coronary artery disease) HTN (hypertension) HLD (hyperlipidemia) BPH (benign prostatic hyperplasia) THERESA (obstructive sleep apnea) BASIC METABOLIC PANEL Routine 01/21/2025 8:56 AM EDT Laboratory tests ordered as part of a complete physical exam (CPE) CAD (coronary artery disease) HTN (hypertension) HLD (hyperlipidemia) BPH (benign prostatic hyperplasia) THERESA (obstructive sleep apnea) CREATINE KINASE Routine 01/21/2025 8:56 AM EDT Laboratory tests ordered as part of a complete physical exam (CPE) CAD (coronary artery disease) HTN (hypertension) HLD (hyperlipidemia) BPH (benign prostatic hyperplasia) THERESA (obstructive sleep apnea) ASPARTATE AMINOTRANSFERASE Routine 01/21/2025 8:56 AM EDT Laboratory tests ordered as part of a complete physical exam (CPE) CAD (coronary artery disease) HTN (hypertension) HLD (hyperlipidemia) BPH (benign prostatic hyperplasia) THERESA (obstructive sleep apnea) ALANINE AMINOTRANSFERASE Routine 8:56 AM EDT Laboratory tests ordered as part of a complete physical exam (CPE) CAD (coronary artery disease) HTN (hypertension) HLD (hyperlipidemia) BPH (benign prostatic hyperplasia) THERESA (obstructive sleep apnea) LIPID PANEL WITH REFLEX TO DIRECT LDL Routine 01/21/2025 8:56 AM EDT Laboratory tests ordered as part of a complete physical exam (CPE) CAD (coronary artery disease) HTN (hypertension) HLD (hyperlipidemia) BPH (benign prostatic hyperplasia) THERESA (obstructive sleep apnea) ECG 12-LEAD Routine 01/15/2025 1:07 PM EDT Coronary artery disease, unspecified vessel or lesion type, unspecified whether angina present, unspecified whether [place] or transplanted heart MICROALBUMIN CREATININE URINE RATIO Routine 07/26/2024 7:33 AM EST Laboratory tests ordered as part of a complete physical exam (CPE) DM2 (diabetes mellitus, type 2) (CMS/HCC V24, CMS/HCC V28) CAD (coronary artery disease) Vitamin D deficiency Hyperparathyroidism , unspecified ([facility] V24) from Last 3 Months or Most Recently Relevant to Health Maintenance Results * (ABNORMAL) Lipid panel with reflex to direct LDL (01/21/2025 8:56 AM EDT) [facility] Signature Cholesterol 93 0 - 200 mg/dL LAB CHEMISTRY METHOD 01/21/2025 11:34 AM [facility] Triglycerides 98 0 - 150 mg/dL LAB CHEMISTRY METHOD 01/21/2025 11:34 AM [facility] HDL 39(L) >=40 mg/dL LAB CHEMISTRY METHOD 01/21/2025 11:34 AM [facility] LDL Calculated 34 0 - 100 mg/dL LAB CHEMISTRY METHOD 01/21/2025 11:34 AM [facility] VLDL Cholesterol Phil 19.6 mg/dL LAB CHEMISTRY METHOD 01/21/2025 11:34 AM EDT [facility] Non HDL Chol. (LDL+VLDL) 54 <145 mg/dL LAB CHEMISTRY METHOD 01/21/2025 11:34 AM [facility] Chol/HDL Ratio 2.4 0.0 - 4.4 LAB CHEMISTRY METHOD 01/21/2025 11:34 AM [facility] Blood Venous blood specimen / Unknown Venipuncture / Unknown 01/21/2025 8:56 AM EDT 01/21/2025 8:56 AM EDT Carmelo Ribeiro LAB BLOOD ORDERABLES Final Resul t [facility] [address] [place] [address], [place] [phone] * (ABNORMAL) CBC auto differential (01/21/2025 8:56 AM EDT) WBC 4.3(L) 4.8 - 10.8 K/mcL LAB HEMETOLOGY METHOD 01/21/2025 11:18 AM [facility] RBC 4.70 4.50 - 5.50 M/mcL LAB HEMETOLOGY METHOD 01/21/2025 11:18 AM [facility] Hemoglobin 14.0 13.5 - 17.5 g/dL LAB HEMETOLOGY METHOD 01/21/2025 11:18 AM T [facility] Hematocrit 41.7(L) 42.0 - 54.0 % LAB HEMETOLOGY METHOD 01/21/2025 11:18 AM [facility] MCV 88.3 79.0 - 98.0 FL LAB HEMETOLOGY METHOD 01/21/2025 11:18 AM [facility] MCH 29.7 27.0 - 32.0 pcg LAB HEMETOLOGY METHOD 01/21/2025 11:18 AM [facility] MCHC 33.6 32.0 - 37.0 g/dL LAB HEMETOLOGY METHOD 01/21/2025 11:18 AM [facility] RDW 13.2 11.0 - 15.0 % LAB HEMETOLOGY METHOD 01/21/2025 11:18 AM [facility] Platelets 178 130 - 400 K/mcL LAB HEMETOLOGY METHOD 01/21/2025 11:18 AM [facility] MPV 12.3(H) 7.0 - 11.0 FL LAB HEMETOLOGY METHOD 01/21/2025 11:18 AM [facility] NRBC 0.0 <1.0 % LAB HEMETOLOGY METHOD 01/21/2025 11:18 AM [facility] NRBC Absolute 0.00 <0.10 K/mcL LAB HEMETOLOGY METHOD 01/21/2025 11:18 AM [facility] Neutrophils Relative 59.4 % LAB HEMETOLOGY METHOD 01/21/2025 11:18 AM [facility] Lymphocytes Relative 29.2 % LAB HEMETOLOGY METHOD 01/21/2025 11:18 AM [facility] Monocytes Relative 9.3 % LAB HEMETOLOGY METHOD 01/21/2025 11:18 AM [facility] Eosinophils Relative 1.4 % LAB HEMETOLOGY METHOD 01/21/2025 11:18 AM [facility] Basophils Relative 0.5 % LAB HEMETOLOGY METHOD 01/21/2025 11:18 AM [facility] Immature Granulocytes Relative 0.2 % LAB HEMETOLOGY METHOD 01/21/2025 11:18 AM [facility] Neutrophils Absolute 2.56 1.50 - 7.00 K/mcL LAB HEMETOLOGY METHOD 01/21/2025 11:18 AM EDT [facility] Lymphocytes Absolute 1.26 1.00 - 5.00 K/mcL LAB HEMETOLOGY METHOD 01/21/2025 11:18 AM EDT [facility] Monocytes Absolute 0.40 0.20 - 1.00 K/[facility] LAB HEMETOLOGY METHOD 01/21/2025 11:18 AM EDT [facility] Eosinophils Absolute 0.06 0.00 - 0.50 K[facility] LAB HEMETOLOGY METHOD 01/21/2025 11:18 AM EDT [facility] Basophils Absolute 0.02 0.00 - 0.20 K[facility] LAB HEMETOLOGY METHOD 01/21/2025 11:18 AM EDT [facility] Immature Granulocytes Absolute 0.01 0.00 - 0.03 K[facility] LAB HEMETOLOGY METHOD 01/21/2025 11:18 AM EDT [facility] Blood Venous blood specimen / Unknown Venipuncture / Unknown 01/21/2025 8:56 AM EDT 01/21/2025 8:56 AM EDT [facility] LAB BLOOD ORDERABLES Final Resul t [facility] [address] [place] [address], * Alanine aminotransferase (01/21/2025 8:56 AM EDT) ALT (SGPT) 27 10 - 60 unit/L LAB CHEMISTRY METHOD 01/21/2025 11:29 AM EDT [facility] Blood Venous blood specimen / Unknown Venipuncture / Unknown 01/21/2025 8:56 AM EDT 01/21/2025 8:56 AM EDT Carmelo Ribeiro LAB BLOOD ORDERABLES Final Resul t [facility] [address] [place] [address], * (ABNORMAL) Aspartate aminotransferase (01/21/2025 8:56 AM EDT) [facility] AST (SGOT) 9(L) 10 - 42 unit/L LAB CHEMISTRY METHOD 01/21/2025 11:34 AM EDT [facility] Blood Venous blood specimen / Unknown Venipuncture / Unknown 01/21/2025 8:56 AM EDT 01/21/2025 8:56 AM EDT Carmelo Ribeiro LAB BLOOD ORDERABLES Final Resul t Performing Organization Address City/[facility]/ZIP Co de Phone Number [facility] [address] [place] [address], * Thyroid stimulating hormone (01/21/2025 8:56 AM EDT) [facility] TSH 1.27 0.40 - 4.00 mcIU/mL LAB CHEMISTRY METHOD 01/21/2025 1:01 PM EDT [facility] Blood Venous blood specimen / Unknown Venipuncture / Unknown 01/21/2025 8:56 AM EDT 01/21/2025 8:56 AM EDT Carmelo Ribeiro LAB BLOOD ORDERABLES Final Resul t [facility] [address] [place] [address], * (ABNORMAL) Hemoglobin A1c (01/21/2025 8:56 AM EDT) [facility] Hemoglobin A1C 6.5(H) <6.5 % LAB CHEMISTRY METHOD 01/21/2025 1:51 PM EDT [facility] Mean Bld Glu Estim. 140 mg/dL LAB CHEMISTRY METHOD 01/21/2025 1:51 PM EDT [facility] Blood Venous blood specimen / Unknown Venipuncture / Unknown 01/21/2025 8:56 AM EDT 01/21/2025 8:56 AM EDT Carmelo Ribeiro LAB BLOOD ORDERABLES Final Resul t Performing Organization Address City/[facility]/ZIP Co de Phone Number [facility] [address] [place] [address], [place] [phone] * Creatine kinase (01/21/2025 8:56 AM EDT) Total CK 140 22 - 269 unit/L LAB CHEMISTRY METHOD 01/21/2025 11:34 AM EDT [facility] Blood Venous blood specimen / Unknown Venipuncture / Unknown 01/21/2025 8:56 AM EDT 01/21/2025 8:56 AM EDT Carmelo Ribeiro LAB BLOOD ORDERABLES Final Resul t Performing Organization Address [facility]/ZIP Co de Phone Number [facility] [address] [place] [address], [place] [phone] * (ABNORMAL) Basic metabolic panel (01/21/2025 8:56 AM EDT) Sodium 137 133 - 145 mmol/L LAB CHEMISTRY METHOD 01/21/2025 11:29 AM EDT [facility] Potassium 3.9 3.5 - 5.5 mmol/L LAB CHEMISTRY METHOD 01/21/2025 11:29 AM EDT [facility] Chloride 107 96 - 110 mmol/L LAB CHEMISTRY METHOD 01/21/2025 11:29 AM EDT [facility] CO2 21 21 - 32 mmol/L LAB CHEMISTRY METHOD 01/21/2025 11:29 AM EDT [facility] Anion Gap 9 3 - 11 LAB CHEMISTRY METHOD 01/21/2025 11:29 AM EDT [facility] Glucose 120(H) 70 - 100 mg/dL LAB CHEMISTRY METHOD 01/21/2025 11:29 AM T [facility] BUN 17 5 - 25 mg/dL LAB CHEMISTRY METHOD 01/21/2025 11:29 AM [facility] Creatinine 1.26 0.70 - 1.30 mg/dL LAB CHEMISTRY METHOD 01/21/2025 11:29 AM EDT [facility] eGFR 64 >=60 mL/min/1. 73m2 LAB CHEMISTRY METHOD 01/21/2025 11:29 AM EDT [facility] Comment:Calculation based on the Chronic Kidney Disease Epidemiology Collaboration (CKD-EPI) equation refit without adjustment for race. BUN/Creatinine Ratio 13.5 LAB CHEMISTRY METHOD 01/21/2025 11:29 AM [facility] Calcium 8.7 8.5 - 10.5 mg/dL LAB CHEMISTRY METHOD 01/21/2025 11:29 AM T [facility] Blood Venous blood specimen / Unknown Venipuncture / Unknown 01/21/2025 8:56 AM EDT 01/21/2025 8:56 AM EDT us Carmelo Ribeiro LAB BLOOD ORDERABLES Final Resul t [facility] [address] [place] [address], * Microalbumin creatinine urine ratio (07/26/2024 7:33 AM EST) Creatinine, Urine 80.0 mg/dL LAB CHEMISTRY METHOD 07/26/2024 12:49 PM EST [facility] Microalb, Ur 13.2 0.0 - 29.0 mg/L LAB CHEMISTRY METHOD 07/26/2024 12:49 PM EST [facility] Microalb/Creat Ratio 17 <30 mg/g creat LAB CHEMISTRY METHOD 07/26/2024 12:49 PM EST [facility] ([facility] Urine Urine specimen obtained by clean catch procedure / Unknown Non-blood Collection / Unknown 07/26/2024 7:33 AM EST 07/26/2024 7:33 AM EST us Carmelo Gema LAB URINE ORDERABLES Final Resul t [facility] ([facility]) [facility] [address] [place] [address], from Last 3 Months or Most Recently Relevant to Health Maintenance Insurance MEDICARE [facility] Advance Directives Documents on File Type Date Recorded 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
== END 2025-03-27 16:14 | disposition home or self-care (01) ==
LOC: HO.HSMS 15:25
PROVIDERS: PCP Internal Medicine; Visit Provider Physician Assistant Medical
DX: G47.52 REM sleep behavior disorder (principal); R41.89 Other symptoms and signs involving cognitive functions and awareness; G47.33 Obstructive sleep apnea (adult) (pediatric); R90.82 White matter disease, unspecified; M79.671 Pain in right foot; M79.672 Pain in left foot
CPT/HCPCS: 99214; G2211